=== PATIENT | male | born 1975 | race Caucasian/White ===

== ENCOUNTER 2024-06-04 14:23 | Observation (INO) | payer BC, SELFPAY ==
[2024-06-04] VITALS (10 sets, daily range): BP systolic 128–168; BP diastolic 65–104; PULSE 62–82; RESP 12–20; TEMP 36.4–37.1; O2SAT 97–99; BMI 36.6; BMI 35.8
--- NOTE | 2024-06-04 14:31 | ED.RN ---
Dr. Patterson to triage to assess need for stroke team. no need at this time
--- NOTE | 2024-06-04 15:02 | CT_ITS ---
PROCEDURE: STROKE CTA HEAD AND NECK W/CON REASON FOR EXAM: Neuro deficit, acute. Stroke suspected. TECHNIQUE: Contrasted CT angiogram of the cervical and intracranial arteries.. COMPARISON: Head CT 06/04/2024. FINDINGS: Cervical CT angiogram: No area of stenosis or obstruction is seen. No aneurysm is noted. Intracranial CT angiogram: No area of stenosis or obstruction is seen. No aneurysm is identified. CT/STROKE CTA Head AND Neck W/Con IMPRESSION: No area of stenosis or obstruction in either the cervical or intracranial porti ons of the CT angiogram. No aneurysm is identified. One or more dose reduction techniques were used (e.g., Automated exposure contr ol, adjustment of the mA and/or kV according to patient size, use of iterative reconstruction technique). Reading Location: [id number]
--- NOTE | 2024-06-04 15:02 | EKG12_ITS ---
Test Reason : CONFUSION Blood Pressure : */* mmHG Vent. Rate : 73 BPM Atrial Rate : 73 BPM P-R Int : 162 ms QRS Dur : 114 ms QT Int : 390 ms P-R-T Axes : 50 33 66 degrees QTcB Int : 429 ms Normal sinus rhythm Incomplete right bundle branch block Borderline ECG Confirmed by NATY FARMER, BERNARDO ([id number]), assignment desk editor LUAN GRAYSON ([id number]) on 06/07/2024 6:02:25 AM Referred By: Hayden Luke Confirmed By: BERNARDO ALFONSO MD
--- NOTE | 2024-06-04 15:02 | CT_ITS ---
PROCEDURE: STROKE BRAIN/HEAD WITHOUT CONT REASON FOR EXAM: Neuro deficit, acute. Stroke suspected. Short-term memory loss. Vision changes for 2 hours, blurry on the right. TECHNIQUE: CT head without contrast, with sagittal and coronal reconstructed images. COMPARISON: None. FINDINGS: No intracranial hemorrhage, mass, or mass effect is seen. Ventricles appear symmetric and within normal range. No extra-axial fluid collection is evident. Moderate mucosal thickening is seen the right maxillary sinus. No air-fluid level is clearly evident. The remaining paranasal sinuses appear clear, as do the mastoid air cells. No orbital abnormality is seen. No fracture site is evident. CT/STROKE Brain/Head without Cont IMPRESSION: 1. No intracranial hemorrhage or other acute process is seen. 2. Right maxillary sinus chronic appearing paranasal sinus disease. One or more dose reduction techniques were used (e.g., Automated exposure contr ol, adjustment of the mA and/or kV according to patient size, use of iterative reconstruction technique). Reading Location: [id number]
--- NOTE | 2024-06-04 15:09 | EDS_ITS ---
HPI History of Present Illness Chief Complaint: Neuro S/Sx Narrative Narrative: 48-year-old male presents with his because of confusion, blurred vision out of his right eye that happened 2 hours prior to arrival. He denies any significant past medical history except elevated cholesterol. He was working from home and at his computer, and did not recognize some of the names of people with whom he works closely. He was slightly confused and complained of blurred vision out of his right eye that is resolving. While he denies headache, he might have very slight right-sided discomfort. No paresthesias of arms or legs, no difficulty with speech. Of note, his did state that they had had intercourse prior to the symptoms developing 2 hours ago. [facility] Medical History (Updated 06/04/24 @ 16:20 by Dhaval Patterson MD) Hypothyroid Hypercholesteremia History of cancer Home Medications ?Medication ?Instructions ?Recorded ?Last Taken ?Type levothyroxine 50 mcg tablet 50 mcg PO DAILY 06/04/24 U nknown History rosuvastatin 20 mg tablet 20 mg PO QHS 06/04/24 Unknow n History Allergy/AdvReac Type Severity Reaction Status Date / Time No Known Allergies Allergy Verified 06/04/24 14:24 Social History Smoking Status: Never smoker alcohol intake: current ROS ROS ED ROS Narrative Constitutional: No fever, no chills. HEENT: No sore throat. No neck pain. No loss of vision. No rhinorrhea. Cardiovascular: No chest pain. No palpitations. No pedal edema. Respiratory: No cough, no shortness of breath. Abdominal: No abdominal pain. No nausea. No vomiting. Genitourinary: No dysuria. No hematuria. Musculoskeletal: No myalgias. No arthralgias. Neurologic: No headaches. No dizziness. No lightheadedness. Positive confusion. Blurred vision out of right eye-resolving Skin: No rash. No change in color. EXAM Physical Exam Narrative Exam Narrative: Afebrile. Vital signs noted. HEENT: Normocephalic. Atraumatic. PERRL, EOMI. Neck soft and supple. No point tenderness or step off. Cardiovascular: Regular rate and rhythm. No murmurs, rubs, or gallops appreciated. Respiratory: No tachypnea. Lungs clear to auscultation bilaterally. Gastrointestinal: Abdomen soft, nontender, with normoactive bowel sounds. No rebound or guarding. Neurological: Awake. Alert. Nonfocal, nonlateralizing. NIH stroke scale equals 0. Skin: No rash. Normal color. No pallor. Musculoskeletal: No pedal edema. Full range of motion extremities. Const Vital Signs: 06/04/24 14:24 06/04/24 15:07 06/04/24 15:32 Temperature 97.8 F Temperature Source Temporal Pulse Rate 82 77 68 Respiratory Rate 16 20 H 15 Blood Pressure 168/98 H 165/78 H 138/84 H Blood Pressure Mean 121 107 102 Pulse Ox 98 98 97 Oxygen Delivery Method Room Air Room Air Room Air 06/04/24 16:02 06/04/24 16:19 Temperature Temperature Source Pulse Rate 68 69 Respiratory Rate 18 19 H Blood Pressure 130/89 H 149/89 H Blood Pressure Mean 102 109 Pulse Ox 99 98 Oxygen Delivery Method Room Air Room Air NIHSS NIHSS Blurred vision right eye, confusion: 1a Level of Consciousness: 0 1b LOC Questions (Score 2 if aphasic/stupor): 0 1c LOC Commands (Only score 1st attempt): 0 2 Best Gaze (If aphasic, use reflexive mvmts.): 0 3 Visual: 0 4 Facial Palsy: 0 5 Motor Arm Right (UN = amputation/fusion): 0 5 Motor Arm Left: 0 6 Motor Leg Right: 0 6 Motor Leg Left: 0 7 Limb ataxia (Only + if out of proportion): 0 8 Sensory (Aphasia/stupor=0 or 1, coma=2): 0 9 Best Language: 0 10 Dysarthria (mute, coma=2, intubated=UN): 0 11 Extinction and Inattention (only scored if +): 0 Total Score: 0 MDM MDM MDM Narrative Medical decision making narrative: I do not feel that stroke team is indicated. I evaluated him in triage initially. He has an NIH stroke scale of 0 and no debilitating deficit. Hence, I do not feel that he is a TNK candidate either. Differential diagnosis does include but not limited to TIA versus intracranial hemorrhage versus atypical migraine/eyestrain. Comprehensive workup was pursued. EKG obtained and interpreted by myself independently as normal sinus rhythm at 73 bpm without ectopy or acute ST changes. No STEMI. I reviewed his laboratory work and he has normal white count of 7.1 with hemoglobin 15.2, hematocrit 45.9, platelet count 198. INR normal at 1.0 with a PTT 34.9. BMP is grossly unremarkable except for BUN slightly elevated 23 with a normal creatinine of 1.02. Glucose is appropriately elevated at 133 with anion gap normal at 7. High-sensitivity troponin is 5. [id number] glucose was 135. I reviewed the radiology report of the CT of the brain and there is no evidence of acute intracranial hemorrhage. Additionally, I reviewed the radiology report of the CTA and there is no noted aneurysm. I do not feel he requires lumbar puncture as he did not have a thunderclap headache. Repeat examination did show that his symptoms resolved. My main concern would be for TIA type symptoms as he states that what he experienced was abnormal for him. I will discuss patient with the hospitalist for observation in the PCU for TIA. Patient is in stable condition. History & Record Review Discussion w/independent historian: Patient and Family Lab Data Attestation: I reviewed the patient's lab results. Labs: Laboratory Results - last 24 hr 06/04/24 06/04/24 15:14 15:21 WBC 7.1 RBC 5.28 Hgb 15.2 Hct 45.9 MCV 86.9 MCH 28.8 MCHC 33.1 RDW Std Deviation 42.5 RDW Coeff of Steve 13.4 Plt Count 198 MPV 10.2 Immature Gran % (Auto) 0.300 Neut % (Auto) 62.4 Lymph % (Auto) 29.6 [place] % (Auto) 6.0 Eos % (Auto) 1.3 Baso % (Auto) 0.4 Absolute Neuts (auto) 4.4 Absolute Lymphs (auto) 2.11 Nucleated RBC % 0 PT 13.7 INR 1.0 APTT 34.9 Sodium 139 Potassium 3.8 Chloride 106 Carbon Dioxide 26.0 Anion Gap 7 BUN 23 H Creatinine 1.02 Estim Creat Clear Calc 140.76 Est GFR (MDRD) Af Amer 100 Est GFR (MDRD) Non-Af 83 BUN/Creatinine Ratio 22.5 H Glucose 133 H Calcium 9.2 Troponin I High Sens 5 POC Glucose 135 H Radiography Diagnostic Testing: Clinical Impression(s) from Imaging Studies Brain CT 06/04/24 15:02 IMPRESSION: 1. No intracranial hemorrhage or other acute process is seen. 2. Right maxillary sinus chronic appearing paranasal sinus disease. One or more dose reduction techniques were used (e.g., Automated exposure control, adjustment of the mA and/or kV according to patient size, use of iterative reconstruction technique). Reading Location: [address] Head/Neck CTA 06/04/24 15:02 IMPRESSION: No area of stenosis or obstruction in either the cervical or intracranial portions of the CT angiogram. No aneurysm is identified. One or more dose reduction techniques were used (e.g., Automated exposure control, adjustment of the mA and/or kV according to patient size, use of iterative reconstruction technique). Reading Location: [address] Management Discussion w/another healthcare provider: Hospitalist (Dr. Luke) Discharge Plan Dx/Rx/DC Orders Clinical Impression: Blurred vision, right eye, Confusion Disposition Disposition: Acute Care Hospital [facility]
[2024-06-04 15:24] LABS: Absolute Lymphocyte Count 2.11 X10^3/uL (0.83-4.51); Absolute Neutrophil Count 4.4 X10^3/uL (2.0-7.7); Basophil# 0.03 X10^3/uL; Basophil% 0.4 % (0-1); Eosinophil# 0.09 X10^3/uL; Eosinophils% 1.3 % (0-5); Hematocrit 45.9 % (40-54); Hemoglobin 15.2 g/dL (13.0-16.5); Lymphocyte # 2.11 X10^3/ul (0.83-4.51); Lymphocyte % 29.6 % (19-41); Mean Corp Hgb Conc 33.1 g/dL (32-36); Mean Corpuscular Hgb 28.8 pg (27.0-32.0); Mean Corpuscular Volume 86.9 fL (80-94); Mean Platelet Vol. 10.2 fl (6.2-12.0); Monocyte# 0.43 X10^3/uL; NRBC Flagged by Analyzer 0 % (0-5); Neutrophil # 4.44 X10^3/uL (2.7-7.7); Neutrophil % 62.4 % (47-70); Platelet Count 198 K/mm3 (150-450); RBC Distribution Width CV 13.4 % (11.6-14.6); RBC Distribution Width SD 42.5 fl (35.1-43.9); Red Blood Count 5.28 M/mm3 (4.6-6.2); White Blood Count 7.1 K/mm3 (4.4-11.0)
[2024-06-04 15:39] LABS: Bedside Glucose 135 mg/dL (74-106)
[2024-06-04 15:49] LABS: Anion Gap 7 (5-15); BUN 23 mg/dL (7-18); BUN/Creat Ratio 22.5 RATIO (10-20); Calcium,Total 9.2 mg/dL (8.5-10.1); Chloride 106 mmol/L (98-107); Creatinine, Serum 1.02 mg/dL (0.70-1.30); EST Glomerular Filtration Rate 83 mL/min (>60); Est Glom Filt Rate - Afr Amer 100 mL/min (>60); Estimated Creatinine Clearance 140.76 ml/min; Glucose 133 mg/dL (74-106); Potassium 3.8 mmol/L (3.5-5.1); Sodium Level 139 mmol/L (136-145); Troponin-I HS 5 pg/mL (3.0-78.0)
[2024-06-04 15:51] LABS: Prothrombin Time (Protime)PT. 13.7 SECONDS (11.7-14.9)
[2024-06-04 15:52] LABS: Partial Thromboplast Time 34.9 Seconds (24.1-36.2)
--- NOTE | 2024-06-04 16:31 | PCM.HP.STD ---
HPI - General General Date of Admission: 06/04/24 Date of Service: 06/04/24 Chief Complaint: Episode of blurred vision with confusion HPI Narrative RADHA JOSEPH, is a 48 M who presented to [facility] ED on 06/04/2024 with an episode of blurred vision with confusion. Patient has history of hyperlipidemia and hypothyroidism. No prior history of stroke. Is in good health at baseline. Today he was at work and noticed that he was confused and not understanding the list of names he was looking at. He also noticed some blurred vision in the right eye along with this. Has never had symptoms like this before. By arrival to the ED, his symptoms had resolved. NIHSS score of 0. CT brain and CTA head/neck were unremarkable. Labs were unremarkable. Blood pressure was mildly elevated to the 140s to 150 systolic, was otherwise hemodynamically stable on room air. Given his symptoms and risk factor of high cholesterol, hospitalist was contacted for admission. I saw the patient at bedside in the ED, was present. Patient was sitting up comfortably in bed, conversing normally, in no acute distress. He denied any blurred vision, headache or confusion currently. He was alert and oriented x 3. Denied any weakness or numbness/tingling in his extremities. No other acute concerns at this time. Will be admitted for further management. [facility] Medical History (Updated 06/04/24 @ 16:20 by Dhaval Patterson MD) Hypothyroid Hypercholesteremia History of cancer Home Medications ?Medication ?Instructions ?Recorded ?Last Taken ?Type levothyroxine 50 mcg tablet 50 mcg PO DAILY 06/04/24 Unknown History rosuvastatin 20 mg tablet 20 mg PO QHS 06/04/24 Unknown History Allergy/AdvReac Type Severity Reaction Status Date / Time No Known Allergies Allergy Verified 06/04/24 14:24 Social History Smoking Status: Never smoker alcohol intake: current ROS Constitutional Constitutional: Denies chills, fatigue, fever(s) or weakness Eyes Eyes: Denies blurry vision or change in vision ENT HEENT: Denies nasal congestion or nasal discharge Cardiovascular Cardiovascular: Denies chest pain Respiratory/Chest Respiratory/Chest: Denies shortness of breath at rest Gastrointestinal Gastrointestinal: Denies abdominal pain Neurologic Neurologic: Denies confusion, dizziness or headache(s) Vital Signs Vital Signs Vital Signs: 06/04/24 14:24 06/04/24 15:07 06/04/24 15:32 Temperature 97.8 F Temperature Source Temporal Pulse Rate 82 77 68 Respiratory Rate 16 20 H 15 Blood Pressure 168/98 H 165/78 H 138/84 H Blood Pressure Mean 121 107 102 Pulse Ox 98 98 97 Oxygen Delivery Method Room Air Room Air Room Air 06/04/24 16:02 06/04/24 16:19 Temperature Temperature Source Pulse Rate 68 69 Respiratory Rate 18 19 H Blood Pressure 130/89 H 149/89 H Blood Pressure Mean 102 109 Pulse Ox 99 98 Oxygen Delivery Method Room Air Room Air Weight Weight: 143.8 kg Body Mass Index (BMI) 36.6 Physical Exam Const alert, oriented x3 and no apparent distress Constitutional Narrative: Pleasant middle-age male, class II obesity, sitting up comfortably in bed, conversing normally, in no acute distress. General Appearance: cooperative and comfortable HEENT normocephalic, head/scalp atraumatic, hearing grossly normal bilaterally, nasal mucous membranes and turbinates normal and moist oral mucous membranes Eyes PERRL, EOMs intact bilaterally and conjunctivae normal Neck full ROM Chest inspection of chest normal Resp normal respiratory effort, normal air movement, no use of accessory muscles and clear to auscultation bilaterally Cardio regular rate, regular rhythm, no murmurs and peripheral pulses 2+ throughout GI normal to inspection, nondistended, normoactive bowel sounds, soft to palpation, non-tender and non-distended Back/Spine normal ROM Extremity normal to inspection, full ROM and no pedal edema Skin no rashes or lesions noted Neuro oriented x3, CN's II-XII intact bilaterally, moves all extremities and no focal motor deficits Speech: speech normal Motor Exam: strength 5/5 throughout Psych mental status grossly normal Results Lab / Micro Data 06/04/24 15:14 06/04/24 15:14 Labs: Laboratory Results - last 24 hr 06/04/24 15:14: WBC 7.1, RBC 5.28, Hgb 15.2, Hct 45.9, MCV 86.9, MCH 28.8, MCHC 33.1, RDW Std Deviation 42.5, RDW Coeff of Steve 13.4, Plt Count 198, MPV 10.2, Immature Gran % (Auto) 0.300, Neut % (Auto) 62.4, Lymph % (Auto) 29.6, [place] % (Auto) 6.0, Eos % (Auto) 1.3, Baso % (Auto) 0.4, Absolute Neuts (auto) 4.4, Absolute Lymphs (auto) 2.11, Nucleated RBC % 0, PT 13.7, INR 1.0, APTT 34.9, Sodium 139, Potassium 3.8, Chloride 106, Carbon Dioxide 26.0, Anion Gap 7, BUN 23 H, Creatinine 1.02, Estim Creat Clear Calc 140.76, Est GFR (MDRD) Af Amer 100, Est GFR (MDRD) Non-Af 83, BUN/Creatinine Ratio 22.5 H, Glucose 133 H, Calcium 9.2, Troponin I High Sens 5 06/04/24 15:21: POC Glucose 135 H Imaging Radiology Impression Brain CT 06/04/24 15:02 IMPRESSION: 1. No intracranial hemorrhage or other acute process is seen. 2. Right maxillary sinus chronic appearing paranasal sinus disease. One or more dose reduction techniques were used (e.g., Automated exposure control, adjustment of the mA and/or kV according to patient size, use of iterative reconstruction technique). Reading Location: [address] Head/Neck CTA 06/04/24 15:02 IMPRESSION: No area of stenosis or obstruction in either the cervical or intracranial portions of the CT angiogram. No aneurysm is identified. One or more dose reduction techniques were used (e.g., Automated exposure control, adjustment of the mA and/or kV according to patient size, use of iterative reconstruction technique). Reading Location: [address] Assessment & Plan Assessment/Plan (1) Blurred vision, right eye: (2) Confusion: PLAN: Plan Patient is a 48-year-old male who presented [facility] ED on 06/04/2024 with an episode of blurred vision with confusion. 1. Strokelike symptoms, CVA rule out ? Admit under observation status to PCU. Neurology consulted. Presented with blurred vision and confusion that had resolved by arrival to the ED. CT brain and CTA head/neck unremarkable. Orders placed per stroke protocol order set. MRI brain and echo with bubble study ordered. Lipid panel, A1c and TSH ordered. Will start baby aspirin and increase to rosuvastatin 40 mg at night for now. PT/OT/case management consulted. 2. Hyperlipidemia ? Fasting lipid panel ordered for tomorrow morning. No prior lipid panel available in our system. Treating with increased dose of statin as noted above for now. 3. Elevated BP readings ? BP in the 140s to 160s in the ED. He reports occasional high blood pressures in the past but they have not been consistent, has never been on antihypertensive therapy. Monitor. 4. Hypothyroidism ? TSH ordered. Continue home Synthroid. 5. Class II obesity ? BMI 36 on admit. Encouraged lifestyle modifications. DVT prophylaxis: SCDs CODE STATUS: Full code, verified Expected disposition: Home, 1 to 2 days Total clinical time spent by myself addressing the patient's medical issues, reviewing all the data, and collaborating with patient's care team: 55 minutes. Charges/Coding Visit Charges Inpatient E&M: 79474 Init Hosp L2
--- NOTE | 2024-06-04 16:34 | NURSING ---
PCU TIA, CONFUSION MOSTELLER
--- NOTE | 2024-06-04 16:35 | MRI_ITS ---
EXAM: BRAIN WITHOUT CONTRAST CLINICAL HISTORY: Concern for stroke. COMPARISON: Concurrent head CT. TECHNIQUE: Multiplanar multisequence MRI of the brain was performed without contrast according to standard departmental protocol. FINDINGS: No evidence of restricted diffusion or acute infarct. No extra-axial fluid collection. No mass effect or midline shift. Brain parenchymal signal intensity is normal. The ventricles and sulci are unremarkable for patient's age. The sella is normal. The major intracranial flow voids are preserved. The calvarium is unremarkable. Orbits are unremarkable. Notable right maxillary sinus mucoperiosteal thickening. MRI/Brain without Contrast IMPRESSION: No acute brain MR process. Mucoperiosteal thickening of the right maxillary si nus Reading [facility]
--- NOTE | 2024-06-04 16:35 | ECHOD_ITS ---
Reason For Study: TIA/CVA Procedure This was a 2D Doppler, Color Flow transthoracic echocardiogram. Exam performed portable in patient room. Left Ventricle Normal left ventricle. The estimated ejection fraction is 55-60 %. Right Ventricle Normal right ventricle. Atria Normal left atrium. Normal right atrium. Bubble contrast study is negative for PFO/ASD. Intact atrial septum. Mitral Valve The mitral valve is structurally normal. No prolapse or stenosis seen. Tricuspid Valve Normal tricuspid valve. Aortic Valve Trisinus/trileaflet aortic valve. Pulmonic Valve The pulmonic valve is not well visualized. Great Vessels Normal aortic root. Pericardium/Pleural No pericardial effusion. Medication Performed a rapid injection of agitated mix of 9 cc saline and 1cc air to assess for atrial septal defect. MMode/2D Measurements & Calculations LVIDd: 5.5 cm IVSd: 1.1 cm LVOT diam: 2.3 cm LVIDs: 3.3 cm LVPWd: 0.98 cm RVDd: 4.2 cm FS: 40.2 % LVOT area: 4.1 cm2 _ asc Aorta Diam: 3.7 cm LAV(MOD-bp): 41.1 ml LVAd ap4: 33.7 cm2 LAV(MOD-bp) Indexed: 15.1 ml/m2 LVLd ap4: 8.6 cm LAV(MOD-sp2): 55.3 ml EDV(MOD- sp4): 108.1 ml LAV(MOD-sp4): 29.4 ml EDV(sp4- el): 111.6 ml LVAs ap4: 18.6 cm2 LVLs ap4: 7.1 cm ESV(MOD- sp4): 41.4 ml ESV(sp4- el): 41.6 ml EF(MOD- sp4): 61.7 % EF(sp4- el): 62.7 % _ LVAd ap2: 27.6 cm2 SV(MOD-sp4): 66.8 ml SV(MOD- sp2): 43.4 ml LVLd ap2: 8.6 cm SI(MOD-sp4): 24.6 ml/m2 SI(MOD- sp2): 16.0 ml/m2 EDV(MOD-sp2): 73.5 ml EDV(sp2-el): 75.0 ml LVAs ap2: 16.1 cm2 LVLs ap2: 7.0 cm ESV(MOD-sp2): 30.1 ml ESV(sp2-el): 31.3 ml EF(MOD-sp2): 59.1 % _ SV(sp4-el): 69.9 ml Ao sinus diam: 4.[address] Junction: 3.6 cm _ LA dimension(2D): 3.1 cm LA A4 area: 13.7 cm2 RA A4 area: 14.5 cm2 _ TAPSE: 2.5 cm Time Measurements MV dec time: 0.21 sec Doppler Measurements & Calculations MV E max gerald: 54.5 cm/sec Lat Peak E' Gerald: 8.8 cm/sec Med Peak E' Gerald: 8.2 cm/sec MV A max gerald: 45.9 cm/sec E/E' lat: 6.2 E/E' med: 6.6 MV E/A: 1.2 _ MV dec slope: 254.4 cm/sec2 Ao V2 max: 91.8 cm/sec LV V1 max: 76.5 cm/sec Ao max P.4 mmHg LV V1 max P.3 mmHg Ao V2 mean: 69.4 cm/sec LV V1 mean P.6 mmHg Ao mean P.1 mmHg LV V1 mean: 60.9 cm/sec Ao V2 VTI: 18.2 cm LV V1 VTI: 17.4 cm AV (velocity ratio): 0.95 ERMIAS(I,D): 3.9 cm2 ERMIAS(V,D): 3.4 cm2 _ SV(LVOT): 71.9 ml PA V2 max: 56.0 cm/sec ECHO/Echo Complete Interpretation Summary The estimated ejection fraction is 55-60 %. Negative buble study with intact interatrial septum Ordering Physician: Hayden Luke Referring Physician: Hayden Luke Performed By: Molly David RDCS
--- NOTE | 2024-06-04 18:19 | CASEMGMT ---
Care Management Face to Face with patient for initial transition planning/care coordination assessment in the ED. This group underwriter introduced self and role at [facility]. Patient alert and oriented, with patient's , Freya, bedside. Patient gave permission to speak in front of patient's . Patient willing to participate in assessment and is able to answer all questions appropriately. Care providers, pharmacy, and demographics verified. Admitting Diagnosis: blurred vision with confusion Other diagnosis history: hyperlipidemia, hypothyroidism PCP: Esa Aguilar Specialists: none Preferred Pharmacy: [facility] [address] [facility]. Insurance: [employer] Prescription Benefit: yes Living Will/HPOA: yes, listed as primary HCPOA. stated ability to bring in during admission. LNOK: , 3 kids (ages 20, 18, 14). Living Arrangements: one story home with family, 6 steps to enter, independent with all ADLs Transportation: patient drives DME: none HHC: none SNF/Rehab: none Community Resources: none Patient goals: Patient wishes to discharge home, denies need for home health care at this time. Patient states he has no further needs or concerns at this time. Disposition Plan: admission to acute; RN CM/SW to follow for discharge planning needs that may arise. Rae Molina, DRILLING MANAGER, [employer]
[2024-06-04] MEDS: MELATONIN 3 MG TABLET PO (21:14)
[2024-06-04] MEDS: Atorvastatin Calcium 80 MG Tablet PO (21:14)
[2024-06-05 03:00] VITALS: BP 114/76; PULSE 57; RESP 14; TEMP 36.5; O2SAT 96
[2024-06-05] MEDS: Levothyroxine 50 MCG Tablet PO (04:29)
[2024-06-05 06:37] LABS: Hematocrit 45.2 % (40-54); Hemoglobin 15.2 g/dL (13.0-16.5); Mean Corp Hgb Conc 33.6 g/dL (32-36); Mean Corpuscular Hgb 28.9 pg (27.0-32.0); Mean Corpuscular Volume 85.9 fL (80-94); Mean Platelet Vol. 10.4 fl (6.2-12.0); Platelet Count 191 K/mm3 (150-450); RBC Distribution Width CV 13.3 % (11.6-14.6); RBC Distribution Width SD 41.9 fl (35.1-43.9); Red Blood Count 5.26 M/mm3 (4.6-6.2); White Blood Count 5.4 K/mm3 (4.4-11.0)
[2024-06-05 07:03] LABS: Anion Gap 7 (5-15); BUN 19 mg/dL (7-18); Calcium,Total 9.1 mg/dL (8.5-10.1); Chloride 108 mmol/L (98-107); Cholesterol 185 mg/dL (200); EST Glomerular Filtration Rate 84 mL/min (>60); Est Glom Filt Rate - Afr Amer 102 mL/min (>60); Estimated Creatinine Clearance 141.88 ml/min; Glucose 99 mg/dL (74-106); High Density Lipoprotein 40 mg/dL; Potassium 3.9 mmol/L (3.5-5.1); Sodium Level 140 mmol/L (136-145); Triglycerides 108 mg/dL; Very Low Density Lipoprotein 22 mg/dL (5-40)
--- NOTE | 2024-06-05 08:27 | STROKE.CONS ---
Assessment and Plan: Stroke Assessment/Plan RADAH JOSEPH, is a 48 M with PMH of Hypothyroidism and HLD who presented to [facility] ED on 06/04/2024 with an episode of acute confusion, bifrontal headache, and right eye blurry vision, likely occuring in the setting of hypertension, poor sleep hygiene, and recent illness. His symptoms have now improved and his blood pressure has normalized. Neurological examination shows no focal neurological deficits. NIHSS 0. Neuroimaging shows no evidence of acute ischemia. Recommend: - Blood pressure cuff for home, check three times daily and keep record, follow up closely with PCP - Sleep hygiene, headache hygiene, healthy lifestyle modification education - Follow up with PCP in 1-2 weeks, [facility] (has appt next week), Neurology (4-6 weeks) - Given stroke risk factors (HLD, prior smoking in college, and ?HTN with interval improvement with lifestyle modifications) agree with daily baby ASA, increased statin dose, and TTE (pending, please follow up, if concern can call us back) - Stroke symptom education and return precuations discussed Neurology will sign off. HPI Consult Data Date of Consult: 06/05/24 HPI Narrative HPI Narrative: Mr. Jospeh was working from home and was at his computer, when he started noticing during a zoom meeting around 1 pm that he did not recognize a list of names he was looking at. He felt confused. He reported mild bifrontal headache at this time as well. He reported that when he came to the ED he noted that his right eye was not as sharp as his left eye when asked about blurry vision. He did not himself report any blurry vision at time of symptom development at home. On arrival to ED, reports his BP was 178 (on chart review appears to be SBP 168). He states he has had increased stress and work the past week, took cold medicine the night prior, and then had lots of caffeine the morning of symptoms due to poor sleep the night before. He states he has not been eating/drinking well because of workload. He also states that last year he was told he had high blood pressure but that he cut out alcohol completely and did some lifestyle modifications and it has now significantly improved. He does not check his blood pressure daily. At time of symptoms he noted bifrontal midl headache, brain fog, unable to recall some ones name. However he denied aphasia (states he asked others in his family if he sounded off or was not making sense, and they said no he was very coherent and making sense), dysarthria, scintillating scotomas, focal weakness, numbness, or gait instability. He reports his vision change in the right eye he noted when asked about blurry vision. He thought it was not has sharp as his left. He denied darking of his vision, whitening of his vision, vision loss, tunnel vision, curtain dropping sensation. Of note, his did state that they had had intercourse prior to the symptoms developing.? On arrival to the ED, his symptoms had large resolved. NIHSS score of 0.? CT Head without acute process, showed chronic R maxillary sinus disease. CTA head/neck without proximal LVO or high grade flow limiting stenosis.? Labs were unremarkable. His blood pressure was elevated initially but over the course of the evening and this morning have normalized. This morning the patient feels at his baseline and much improved. MRI obtained and negative for acute ischemia. LDL 123. TTE pending.? [facility] Medical History (Updated 06/04/24 @ 16:20 by Dhaval Patterson MD) Hypothyroid Hypercholesteremia History of cancer Home Medications ?Medication ?Instructions ?Recorded ?Last Taken ?Type levothyroxine 50 mcg tablet 50 mcg PO DAILY 06/04/24 Unknown History rosuvastatin 20 mg tablet 20 mg PO QHS 06/04/24 Unknown History Allergy/AdvReac Type Severity Reaction Status Date / Time No Known Allergies Allergy Verified 06/04/24 14:24 Social History Smoking Status: Never smoker alcohol intake: current Vital Signs Vital Signs Vital Signs: 06/04/24 14:24 06/04/24 15:07 06/04/24 15:32 Temperature 97.8 F Temperature Source Temporal Pulse Rate 82 77 68 Pulse Strength Respiratory Rate 16 20 H 15 Blood Pressure 168/98 H 165/78 H 138/84 H Blood Pressure Mean 121 107 102 Blood Pressure Source Blood Pressure Position Blood Pressure Location Pulse Ox 98 98 97 Oxygen Delivery Method Room Air Room Air Room Air 06/04/24 16:02 06/04/24 16:19 06/04/24 16:30 Temperature Temperature Source Pulse Rate 68 69 71 Pulse Strength Respiratory Rate 18 19 H 15 Blood Pressure 130/89 H 149/89 H 147/65 H Blood Pressure Mean 102 109 92 Blood Pressure Source Blood Pressure Position Blood Pressure Location Pulse Ox 99 98 97 Oxygen Delivery Method Room Air Room Air Room Air 06/04/24 16:57 06/04/24 19:00 06/04/24 22:00 Temperature 98.7 F 97.6 F L Temperature Source Oral Pulse Rate 71 71 Pulse Strength Normal (2+) Respiratory Rate 15 14 Blood Pressure 147/65 H 148/104 H Blood Pressure Mean 92 118 Blood Pressure Source Monitor Blood Pressure Position Semi-Fowlers Blood Pressure Location Left Forearm Pulse Ox 97 98 Oxygen Delivery Method Room Air 06/04/24 23:00 06/04/24 23:15 06/05/24 03:00 Temperature 98.0 F 97.7 F L Temperature Source Oral Oral Pulse Rate 62 57 L Pulse Strength Respiratory Rate 12 14 Blood Pressure 128/75 H 114/76 Blood Pressure Mean 92 88 Blood Pressure Source Monitor Monitor Blood Pressure Position Semi-Fowlers Semi-Fowlers Blood Pressure Location Left Arm Left Arm Pulse Ox 99 98 96 Oxygen Delivery Method Room Air Room Air Room Air Weight Weight: 140.5 kg Body Mass Index (BMI) 35.8 EEG Results Procedure Details EEG Procedure Details: RADHA JOSEPH is a 48 year old M with a past medical history of , who presents for evaluation of Electroencephalogram on DATE at TIME NIHSS NIHSS Nursing Documentation NIHSS Nursing Documentation: NIHSS: Ischemic Stroke/TIA Start: 06/04/24 19:51 Text: For ICU Patients: NIH sroke scale at Status: Complete presentation and every 2 hours or with change in RN caregiver Freq: [id number] Protocol: Activity Type Activity Date Activity User E-sign Co-sign Detail Recorded Client Recorded Date Recorded By Document 06/04/24 19:00 TLV [id number] 06/04/24 20:09 TLV 06/04/24 19:00 NIH Stroke Scale [NIHSS] A score of 0 is normal or asymptomatic . Total possible score is 42. Inpatient: RN or Physician to activate a stroke alert for onset of new stroke symptoms or with NIHSS increase >/= 3 points. Following change in neurological status, NIHSS will be performed per physician order or more frequently PRN. -1a. Level of Consciousness Alert; keenly responsive -1b. LOC Questions Answers BOTH questions correctly. -1c. LOC Commands Performs both tasks correctly . -2. Best Gaze Normal -3. Visual No visual loss -4. Facial Palsy Normal symmetrical movements -5a. Left Arm No drift; arm holds 90 (or 45 ) degrees for full 10 seconds -5b. Right Arm No drift; arm holds 90 (or 45 ) degrees for full 10 seconds -6a. Left Leg No drift; leg holds 30-degree position for full 5 seconds -6b. Right Leg No drift; leg holds 30-degree position for full 5 seconds -7. Limb Ataxia Absent -8. Sensory Normal; no sensory loss -9. Best Language No aphasia; normal -10. Dysarthria Normal -11. Extinction and Inattention No abnormality -Total 0 Query Text:A score of 0 is normal or asymptomatic. Total possible score is 42 . ED: Notify Physician for NIHSS increase by > / = 3 points. Inpatient: RN or Physician to activate a stroke alert for NIHSS increase of > / = 3 points. Coma Scale [Assess] -Eye Opening Spontaneous -Motor Obeys Commands -Verbal Oriented [Total] -Coma Scale Total 15 NIHSS: Ischemic Stroke/TIA Start: 06/04/24 19:51 Text: For PCU Patients: NIH and Neuro Check every 4 Status: Complete hours, PRN and with change in RN caregiver. Freq: [id number] Protocol: Activity Type Activity Date Activity User E-sign Co-sign Detail Recorded Client Recorded Date Recorded By Document 06/05/24 03:00 TLV [id number] 06/05/24 03:32 TLV 06/05/24 03:00 NIH Stroke Scale [NIHSS] A score of 0 is normal or asymptomatic . Total possible score is 42. Inpatient: RN or Physician to activate a stroke alert for onset of new stroke symptoms or with NIHSS increase >/= 3 points. Following change in neurological status, NIHSS will be performed per physician order or more frequently PRN. -1a. Level of Consciousness Alert; keenly responsive -1b. LOC Questions Answers BOTH questions correctly. -1c. LOC Commands Performs both tasks correctly . -2. Best Gaze Normal -3. Visual No visual loss -4. Facial Palsy Normal symmetrical movements -5a. Left Arm No drift; arm holds 90 (or 45 ) degrees for full 10 seconds -5b. Right Arm No drift; arm holds 90 (or 45 ) degrees for full 10 seconds -6a. Left Leg No drift; leg holds 30-degree position for full 5 seconds -6b. Right Leg No drift; leg holds 30-degree position for full 5 seconds -7. Limb Ataxia Absent -8. Sensory Normal; no sensory loss -9. Best Language No aphasia; normal -10. Dysarthria Normal -11. Extinction and Inattention No abnormality -Total 0 Query Text:A score of 0 is normal or asymptomatic. Total possible score is 42 . ED: Notify Physician for NIHSS increase by > / = 3 points. Inpatient: RN or Physician to activate a stroke alert for NIHSS increase of > / = 3 points. Coma Scale [Assess] -Eye Opening Spontaneous -Motor Obeys Commands -Verbal Oriented [Total] -Coma Scale Total 15 NIHSS 1a. Level of Consciousness: Alert; keenly responsive 1b. LOC Questions: Answers BOTH questions correctly. 1c. LOC Commands: Performs both tasks correctly. 2. Best Gaze: Normal 3. Visual: No visual loss 4. Facial Palsy: Normal symmetrical movements 5a. Left Arm: No drift; arm holds 90 (or 45) degrees for full 10 seconds 5b. Right Arm: No drift; arm holds 90 (or 45) degrees for full 10 seconds 6a. Left Leg: No drift; leg holds 30-degree position for full 5 seconds 6b. Right Leg: No drift; leg holds 30-degree position for full 5 seconds 7. Limb Ataxia: Absent 8. Sensory: Normal; no sensory loss 9. Best Language: No aphasia; normal 10. Dysarthria: Normal 11. Extinction and Inattention: No abnormality Total: 0 Lab / Micro Data 06/05/24 06:05 06/05/24 06:05 Labs: Laboratory Results - last 24 hr 06/04/24 15:14: WBC 7.1, RBC 5.28, Hgb 15.2, Hct 45.9, MCV 86.9, MCH 28.8, MCHC 33.1, RDW Std Deviation 42.5, RDW Coeff of Steve 13.4, Plt Count 198, MPV 10.2, Immature Gran % (Auto) 0.300, Neut % (Auto) 62.4, Lymph % (Auto) 29.6, [place] % (Auto) 6.0, Eos % (Auto) 1.3, Baso % (Auto) 0.4, Absolute Neuts (auto) 4.4, Absolute Lymphs (auto) 2.11, Nucleated RBC % 0, PT 13.7, INR 1.0, APTT 34.9, Sodium 139, Potassium 3.8, Chloride 106, Carbon Dioxide 26.0, Anion Gap 7, BUN 23 H, Creatinine 1.02, Estim Creat Clear Calc 140.76, Est GFR (MDRD) Af Amer 100, Est GFR (MDRD) Non-Af 83, BUN/Creatinine Ratio 22.5 H, Glucose 133 H, Calcium 9.2, Troponin I High Sens 5, TSH 2.590 06/04/24 15:21: POC Glucose 135 H 06/05/24 06:05: WBC 5.4, RBC 5.26, Hgb 15.2, Hct 45.2, MCV 85.9, MCH 28.9, MCHC 33.6, RDW Std Deviation 41.9, RDW Coeff of Steve 13.3, Plt Count 191, MPV 10.4, Sodium 140, Potassium 3.9, Chloride 108 H, Carbon Dioxide 25.0, Anion Gap 7, BUN 19 H, Creatinine 1.00, Estim Creat Clear Calc 141.88, Est GFR (MDRD) Af Amer 102, Est GFR (MDRD) Non-Af 84, BUN/Creatinine Ratio 19.0, Glucose 99, Calcium 9.1, Triglycerides 108, Cholesterol 185, LDL Cholesterol 123, VLDL Cholesterol 22, HDL Cholesterol 40 Imaging Radiology Impression Brain CT 06/04/24 15:02 IMPRESSION: 1. No intracranial hemorrhage or other acute process is seen. 2. Right maxillary sinus chronic appearing paranasal sinus disease. One or more dose reduction techniques were used (e.g., Automated exposure control, adjustment of the mA and/or kV according to patient size, use of iterative reconstruction technique). Reading Location: [address] Head/Neck CTA 06/04/24 15:02 IMPRESSION: No area of stenosis or obstruction in either the cervical or intracranial portions of the CT angiogram. No aneurysm is identified. One or more dose reduction techniques were used (e.g., Automated exposure control, adjustment of the mA and/or kV according to patient size, use of iterative reconstruction technique). Reading Location: [id number] Brain MRI 06/04/24 16:35 IMPRESSION: No acute brain MR process. Mucoperiosteal thickening of the right maxillary sinus Reading Location: [facility] Active Medications Active Medications Active Medications: Current Medications Generic Name Dose Route Start Last Admin Trade Name Freq PRN Reason Stop Dose Admin Acetaminophen 650 mg 06/04/24 19:51 Acetaminophen 325 Mg Tablet PO Q6H PRN PRN Pain 1-10 Or Fever>100.7 Aspirin 81 mg 06/05/24 08:00 Aspirin 81 Mg Tab.Chew PO BREAKFAST MICHELLE Atorvastatin Calcium 80 mg 06/04/24 22:00 06/04/24 21:14 Atorvastatin Calcium 80 Mg Tablet PO 80 mg QHS MICHELLE Administration Hydralazine HCl 5 mg 06/04/24 19:51 Hydralazine 20 Mg/Ml Vial IV 06/05/24 19:51 Q30M PRN maintain BP parameters with HR <60 Labetalol HCl 10 - 20 mg 06/04/24 19:51 Labetalol 20mg/4ml Syringe IV 06/05/24 19:51 Q10M PRN PRN maintain BP parameters with HR >/=60 Levothyroxine Sodium 50 mcg 06/05/24 06:00 06/05/24 04:29 Levothyroxine 50 Mcg Tablet PO 50 mcg DAILY@0600 MICHELLE Administration Melatonin 3 mg 06/04/24 19:51 06/04/24 21:14 Melatonin 3 Mg Tablet PO 3 mg QHS PRN PRN Administration INSOMNIA Ondansetron HCl 4 mg 06/04/24 19:51 Ondansetron 4 Mg/2 Ml Vial IV Q8H PRN PRN NAUSEA/VOMITING Sodium Chloride 10 - 40 ml 06/04/24 20:06 0.9% Saline Lock 10 Ml Syringe IV UD PRN SALINE FLUSH
[2024-06-05 09:00] VITALS: BP 147/87; PULSE 65; RESP 16; TEMP 36.4; O2SAT 97
[2024-06-05 09:11] VITALS: O2SAT 97
[2024-06-05] MEDS: Aspirin 81 MG TAB.CHEW PO (09:39)
--- NOTE | 2024-06-05 11:18 | CASEMGMT ---
Social Work It does not appear at this time pt had a stroke, PHQ-9 not completed. DEJA Benito
--- NOTE | 2024-06-05 12:19 | DS.PCM_ITS ---
Providers Date of Admission: 06/04/24 Date of Discharge: 06/05/24 Primary Care Physician: Dr. Esa Aguilar, DO Consultations 06/04/24 19:51 Consult: Tele-Neurology Routine Consulting Provider: [facility] Reason for Consult: Acute Ischemic Stroke/TIA EMERGENT Consult: No MD Notified: Yes Date Notified: 06/04/24 Time Notified: 21:08 Method of Notification: Answering Service Nursing Unit Staff Notify [facility] of Tele-Neurology Consult: Yes Reason For Visit: STROKELIKE SYMPTOMS Diagnosis Discharge Diagnosis (1) Blurred vision, right eye: Status: Acute Code(s): H53.8 - Other visual disturbances (2) Confusion: Status: Acute Code(s): R41.0 - Disorientation, unspecified Medications at Discharge Home Medications levothyroxine 50 mcg tablet 50 mcg PO DAILY 06/04/24 aspirin 81 mg chewable tablet 81 mg PO BREAKFAST #0 tabs 06/05/24 rosuvastatin 20 mg tablet 40 mg (2 x 20 mg) PO QHS #60 tabs 06/05/24 Hospital Course Operations None Procedures 2-D Echocardiogram and - (CT brain/CTA head and neck/Brain MRI) Summary of Care Provided Minutes Spent on Discharge: 38 Hospital Course: Patient is a 48-year-old white male who presented to the emergency department [facility] on 06/04/2024 with a chief complaint of confusion, bifrontal headache, and abnormal visual changes. He stated he was sitting in his computer doing work on a Zoom meeting at about 1 PM and he did not recognize a list of names he was looking at. He felt confused and had a mild bifrontal headache. He noted on presentation to emergency department that his right eye vision was not as sharp as his left eye vision and it was blurry in nature. Blurred vision was not present at the time of the initial onset of symptoms. His took his blood pressure at home and systolic was noted to be 178. Patient states his blood pressure has been elevated the last several days due to increased stress and him taking some cold medicine the night prior. Patient also reports he is utilizing a lot of caffeine in the morning due to poor sleeping the night before. He has not been eating or drinking well due to his workload at work. He denied any other neurological changes. He did have intercourse prior to the symptoms developing. Upon arrival to the emergency department his NIH was 0 and his symptoms have largely resolved. CT of the brain was unremarkable for acute processes and only showed chronic right maxillary sinus disease. CTA of the head and neck showed no LVO or high-grade stenosis. Labs were unremarkable. On the day of discharge she was feeling back to his baseline. MRI was negative for acute stroke and his LDL was 123. Echocardiogram showed an EF of 55 to 60% and bubble study was negative. He was seen by neurology. They recommended continuing a baby aspirin and increase his statin dose. He is currently on rosuvastatin 20 mg so we will double it to 40 mg. He is to keep his blood pressure assessed at home 3 times daily and keep a record and follow-up closely with his primary care physician. He was counseled on sleep hygiene, headache hygiene and lifestyle modifications by neurology. He is to follow-up with his PCP in 1 to 2 weeks, ophthalmology as scheduled, and neurology in the next 4 to 6 weeks. He was given a referral for neurology at the time of discharge however if his primary care physician would like him to follow-up with a different neurologist that is fine as well. Patient was able to be discharged home on 06/05/2024 with only a new prescription for the increased dose of rosuvastatin at the time of discharge. Discharge diagnoses: Bifrontal headache-resolved Right eye blurred vision-resolved Acute confusion-resolved Elevated blood pressure Hyperlipidemia Hypothyroidism Obesity Physical Exam Narrative Patient states he is feeling well. He had no symptoms since he has been here. Anxious to go home. Const alert, oriented x3, no apparent distress, no limitations, healthy appearing and well nourished; Negative for average body habitus Constitutional Narrative: Obese, middle aged white male, sitting up on the edge of the bed, appears comfortable, nontoxic General Appearance: cooperative, comfortable, well kempt and well developed Exam Limitations: no limitations Nutritional Appearance: obese HEENT normocephalic, head/scalp atraumatic, hearing grossly normal bilaterally and moist oral mucous membranes Eyes EOMs intact bilaterally and conjunctivae normal Eyes Narrative: No scleral icterus Neck supple Neck Narrative: Trachea midline Resp normal respiratory effort, no retractions and no use of accessory muscles Auscultation: Negative for rales, rhonchi or wheezes Cardio regular rate, regular rhythm, S1 normal heart sound, S2 normal heart sound, no murmurs, no rub, no gallops and no clicks GI normal to inspection, nondistended, normoactive bowel sounds, soft to palpation and non-tender Extremity no clubbing, cyanosis or edema Neuro oriented x3, moves all extremities and no focal motor deficits Speech: speech normal Psych affect normal Psych Narrative: Very pleasant Weight / BMI Weight Weight: 140.5 kg Body Mass Index (BMI) 35.8 ABG / Lab / Microbiology Data 06/05/24 06:05 06/05/24 06:05 Laboratory: Laboratory Results - last 24 hr 06/04/24 15:14: WBC 7.1, RBC 5.28, Hgb 15.2, Hct 45.9, MCV 86.9, MCH 28.8, MCHC 33.1, RDW Std Deviation 42.5, RDW Coeff of Steve 13.4, Plt Count 198, MPV 10.2, Immature Gran % (Auto) 0.300, Neut % (Auto) 62.4, Lymph % (Auto) 29.6, [place] % (Auto) 6.0, Eos % (Auto) 1.3, Baso % (Auto) 0.4, Absolute Neuts (auto) 4.4, Absolute Lymphs (auto) 2.11, Nucleated RBC % 0, PT 13.7, INR 1.0, APTT 34.9, Sodium 139, Potassium 3.8, Chloride 106, Carbon Dioxide 26.0, Anion Gap 7, BUN 23 H, Creatinine 1.02, Estim Creat Clear Calc 140.76, Est GFR (MDRD) Af Amer 100, Est GFR (MDRD) Non-Af 83, BUN/Creatinine Ratio 22.5 H, Glucose 133 H, Calcium 9.2, Troponin I High Sens 5, TSH 2.590 06/04/24 15:21: POC Glucose 135 H 06/05/24 06:05: WBC 5.4, RBC 5.26, Hgb 15.2, Hct 45.2, MCV 85.9, MCH 28.9, MCHC 33.6, RDW Std Deviation 41.9, RDW Coeff of Steve 13.3, Plt Count 191, MPV 10.4, Sodium 140, Potassium 3.9, Chloride 108 H, Carbon Dioxide 25.0, Anion Gap 7, BUN 19 H, Creatinine 1.00, Estim Creat Clear Calc 141.88, Est GFR (MDRD) Af Amer 102, Est GFR (MDRD) Non-Af 84, BUN/Creatinine Ratio 19.0, Glucose 99, Calcium 9.1, Triglycerides 108, Cholesterol 185, LDL Cholesterol 123, VLDL Cholesterol 22, HDL Cholesterol 40 Radiography Diagnostic Testing: Radiology Impression Brain CT 06/04/24 15:02 IMPRESSION: 1. No intracranial hemorrhage or other acute process is seen. 2. Right maxillary sinus chronic appearing paranasal sinus disease. One or more dose reduction techniques were used (e.g., Automated exposure control, adjustment of the mA and/or kV according to patient size, use of iterative reconstruction technique). Reading Location: [address] Head/Neck CTA 06/04/24 15:02 IMPRESSION: No area of stenosis or obstruction in either the cervical or intracranial portions of the CT angiogram. No aneurysm is identified. One or more dose reduction techniques were used (e.g., Automated exposure control, adjustment of the mA and/or kV according to patient size, use of iterative reconstruction technique). Reading Location: [address] Brain MRI 06/04/24 16:35 IMPRESSION: No acute brain MR process. Mucoperiosteal thickening of the right maxillary sinus Reading Location: [facility] Echocardiogram 06/04/24 16:35 Interpretation Summary The estimated ejection fraction is 55-60 %. Negative buble study with intact interatrial septum Ordering Physician: Hayden Luke Referring Physician: Hayden Luke Performed By: Molly David RDCS D/C Instructions Discharge Diet: Low fat / Low cholesterol Discharge Activity: Return to Normal Activity Return to work on: 06/07/24 DC O2, CPAP, BIPAP Needs Home O2 Discharge instructions: No Meaningful Use Info Meaningful Use Meaningful Use Diagnoses (Choose all that apply): None applicable Ischemic Stroke Statin Dosing Therapy Reference: STATIN DOSE THERAPY REFERENCE: * Patients > 75 years receive moderate or high dose statin therapy. * Patients 75 years or YOUNGER should receive HIGH intensity statin dose unless contraindicated. You will be required to document reason for non-treatment if statin daily dose does not meet guidelines. HIGH DOSE STATIN THERAPY DAILY Atorvastatin > than or = to 40 mg Rosuvastatin > than or = to 20 mg Amlodipine + Atorvastatin > than or = to 2.5/40 mg Ezetimibe + Simvastatin 10/80 mg Simvastatin 80mg Discharge Plan Admission Admit Date/Time: 06/04/24 16:31 Primary Reason for Your Visit: Confusion/Blurred Vision Attending Provider: Ashley Romero Primary Care Provider: Esa Aguilar Consulting Providers: Merlin Collier; Gayla Tee; Evita Andrews; Stacy Boyce; Ambika Henry; Rigo Silva; Joyce Turcios; Sudhir Shukla; Salvador Henderson; River Perez; Trena Sim; Wolf Lauren; Anna Cantrell; Sadiq Reddy; Bernardo Gonzales; Gregorio Chavarria; Cari Caceres; Ulises Montano; Lakshmi Romero; Lobo Rick; Hayden Luke Discharge Orders/Prescriptions Prescriptions: New aspirin 81 mg Tablet,Chewable 81 mg PO BREAKFAST Qty: 0 0RF Continued levothyroxine 50 mcg tablet 50 mcg PO DAILY Changed rosuvastatin 20 mg tablet 40 mg PO QHS Qty: 60 0RF Referrals / Follow Up: Esa Aguilar DO [Primary Care Provider] - Within 2 Weeks Víctor Syed MD [Non-Staff -Ordering Privileges] - See Referral Note (4 to 6 weeks) Disposition Disposition (needs filled in before D/C Order can be placed): Home, Self Care Charges/Coding Visit Charges Inpatient E&M: 35694 Disch Hosp
[2024-06-06 01:06] LABS: Hemoglobin A1c 5.6 % (3.8-5.6)
== END 2024-06-05 12:58 | disposition home or self-care (01) ==
LOC: ED 16:20 → PCU 19:50
PROVIDERS: Admitting Provider Hospitalist; Emergency Provider Emergency Medicine; PCP Family Medicine; Referring Provider Hospitalist; Visit Provider Internal Medicine
DX: G44.89 Other headache syndrome (principal); R03.0 Elevated blood-pressure reading, without diagnosis of hypertension; E78.00 Pure hypercholesterolemia, unspecified; H53.8 Other visual disturbances; E66.812 Obesity, class 2; E03.9 Hypothyroidism, unspecified; R41.0 Disorientation, unspecified; Z68.36 Body mass index [BMI] 36.0-36.9, adult; Z79.890 Hormone replacement therapy; Z79.899 Other long term (current) drug therapy; I45.10 Unspecified right bundle-branch block
CPT/HCPCS: 36415; 70450; 70496; 70498; 70551; 80048; 80061; 82962; 83036; 84443; 84484; 85025; 85027; 85610; 85730; 93005; 93306; 94762; 99221; 99285; Q9957; Q9967; G0378